=== PATIENT | female | born 1985 | race Caucasian/White ===

== ENCOUNTER 2017-10-11 07:23 | Inpatient (IN) | payer OTHER ==
[~2017-10-11] VITALS: Ht 167.6 cm; Wt 83.6 kg
[~2017-10-11 07:23] MED LIST: MASON NATURAL2000 IU PO; MOTRIN 800800 MG/TAB PO; PERCOCET 325 MG1 TA2 PO; PRENATAL1 TA1 PO; SENOKOT S 50 MG1 TAB PO; SYNTHROID0.1 MG/TAB PO
[2017-12-09] VITALS (23 sets, daily range): BP systolic 102–133; BP diastolic 51–93; PULSE 56–84; TEMP 96.7–98.2
[2017-12-09] MEDS ORDERED: OSCAL 500 TAB500 MG PO (07:25)
[2017-12-09 08:07] LABS: BASO % 0.4 % (0.0-2.0); EOS # 0.1 (0.0-0.7); EOS % 0.9 % (0-4.0); GRAN # 5.1 (1.4-6.5); GRAN % 69.4 % (42.2-75.2); HEMATOCRIT 39.7 % (37.0-47.0); HEMOGLOBIN 13.1 g/dl (12.5-16.0); LYMPH # 1.6 (1.2-3.4); LYMPH % 22.1 % (20.0-51.0); MEAN CELL VOLUME 91 fl (80.0-100.0); MEAN CORPUSCULAR HEMOGLOBIN 30 pg (27.0-31.0); MEAN CORPUSCULAR HGB CONC 33 g/dl (33.0-37.0); MEAN PLATELET VOLUME 10.3 fl (7.4-10.4); MONO # 0.5 (0.1-0.6); MONO % 6.4 % (1.7-9.3); PLATELET COUNT 187 K/mm3 (130-400); RED BLOOD COUNT 4.35 M/mm3 (4.10-5.30); REDCELL DISTRIBUTION WIDTH-CV 12.5 % (11.5-14.5)
[2017-12-10 07:50] VITALS: BP 109/68; PULSE 76; TEMP 97.2
[2017-12-10] MEDS ORDERED: IBU800 M1 PO (08:30)
== END 2017-12-10 14:15 | disposition home or self-care (01) | DRG 775 ==
LOC: LDR → OB 12-09 06:58 → LDR 12-09 09:10 → OB 12-09 14:00
PROVIDERS: Obstetrics & Gynecology
PROC: 10E0XZZ Delivery of Products of Conception, External Approach (ICD-10-PCS; principal; 2017-12-09)
PROC: 3E033VJ Introduction of Other Hormone into Peripheral Vein, Percutaneous Approach (ICD-10-PCS; 2017-12-09)
DX: O48.0 Post-term pregnancy (principal); Z3A.41 41 weeks gestation of pregnancy; Z37.0 Single live birth
CPT/HCPCS: J2590; J7120

== ENCOUNTER → 2018-03-28 | Outpatient (CLI) | payer OTHER ==
[~2018-03-28] MED LIST changes: +IBU800 M1 PO; +OSCAL 500 TAB500 MG PO
== END ==
LOC: COL.LAB 13:03
DX: Z01.89 Encounter for other specified special examinations (principal)